=== PATIENT | female | born 1955 | race Caucasian/White ===

== ENCOUNTER 2016-11-16 14:02 | Emergency (ER) | payer BC ==
[~2016-11-16] VITALS: Ht 172.7 cm; Wt 115.7 kg
[~2016-11-16 14:02] MED LIST: ATENOLOL100 M1 PO; CIPRO PO; COUMADIN,JANTOVE6 MG; COUMADIN3 MG PO; COUMADIN4 MG PO; GLUCOPHAGE1000 MG; GLUCOPHAGE1000 MG PO; LEVOXYL; LISINOPRIL; NORVASC10 MG PO; SERTRALINE HCL100 MG; SIMVASTATIN; SYNTHROID25 MCG PO; TRILEPTAL300 MG; TYLENOL EXTRA500 MG PO; VOLTAREN 1% GE100 GM TP; XARELTO20 MG PO; Zestril,Prinivil PO; Zocor PO
[2016-11-16 15:52] LABS: HEMATOCRIT 44.5 % (36.0-46.0); MCH 30.7 PG (29.0-34.0); MCHC 32.6 G/DL (30.0-36.0); MCV 94.3 FL (83-99); MEAN PLAT.VOLUME 9.9 uM^3 (9.5-12.4); PLATELET COUNT 146 K/uL (156-360); RBC DIS.WIDTH-CV 11.9 % (11.8-14.6); RBC DIS.WIDTH-SD 41.4 % (39-53); RED BLOOD COUNT 4.72 M/uL (3.80-5.20); WHITE BLOOD COUNT 8.7 K/uL (4.1-10.2)
[2016-11-16 16:05] LABS: INTER. NORMALIZED RATIO 1.1; PROTHROMBIN TIME 10.7 (9.2-11.2); PTT 30.3 (25-32)
[2016-11-16 16:06] LABS: CHLORIDE 106 mEq/L (99-109); POTASSIUM 4.4 mEq/L (3.7-5.4); SODIUM 142 mEq/L (136-147)
[2016-11-16 16:08] LABS: GLUCOSE 116 mg/dL (70-99)
[2016-11-16 16:09] LABS: ANION GAP 8 MEQ/L (2-14)
[2016-11-16 16:11] LABS: GFR ESTIMATE (CALCULATED) > 59 mL/min/
[2016-11-16 16:12] LABS: UREA NITROGEN (BUN) 11 mg/dL (9-23)
[2016-11-16] MEDS ORDERED: ULTRAM50 MG PO (17:25)
[2016-11-16] MEDS ORDERED: LEVAQUIN500 MG PO (17:25)
[2016-11-16 17:50] VITALS: BP 171/82
== END 2016-11-16 17:58 | disposition home or self-care (01) ==
LOC: EME 14:02
DX: M79.605 Pain in left leg (principal); J18.9 Pneumonia, unspecified organism; Z86.718 Personal history of other venous thrombosis and embolism; Z86.711 Personal history of pulmonary embolism; D69.6 Thrombocytopenia, unspecified; R60.0 Localized edema; I10 Essential (primary) hypertension; E11.9 Type 2 diabetes mellitus without complications; Z79.01 Long term (current) use of anticoagulants
CPT/HCPCS: 71020; 80048; 85027; 85610; 85730; 93005; 93971; 99281; 99284

== ENCOUNTER 2017-02-03 05:28 | Day surgery (SDC) | payer BC ==
[~2017-02-03] VITALS: Ht 172.7 cm; Wt 117.9 kg
[~2017-02-03 05:28] MED LIST changes: +AMARYL4 MG PO; +CENTRUM SILVER1 EAC3 PO; +LEVAQUIN500 MG PO; +LEVO-T150 MCG PO; +LOVENOX60 MG/0.6 SC; +NEURONTIN300 MG PO; +ULTRAM50 MG PO; +ZOCOR20 MG PO; +ZOLOFT100 MG PO; +ZYRTEC10 M3 PO
[2017-02-03 06:14] VITALS: BP 117/65
[2017-02-03 06:18] LABS: POINT-OF-CARE METER ID UU13113694
[2017-02-03 06:35] LABS: PROTHROMBIN TIME 10.1 (9.2-11.2); PTT 26.6 (25-32)
[2017-02-03 09:03] LABS: POINT-OF-CARE METER ID UU13113675
[2017-02-03 10:07] VITALS: BP 108/63
[2017-02-03 11:20] VITALS: BP 113/61
== END 2017-02-03 11:33 | disposition home or self-care (01) ==
LOC: SDC 05:28
PROVIDERS: Surgery
PROC: 0DP64CZ Removal of Extraluminal Device from Stomach, Percutaneous Endoscopic Approach (ICD-10-PCS; principal; 2017-02-03)
DX: K95.09 Other complications of gastric band procedure (principal); I10 Essential (primary) hypertension; E78.5 Hyperlipidemia, unspecified; E11.9 Type 2 diabetes mellitus without complications; R01.1 Cardiac murmur, unspecified; G47.33 Obstructive sleep apnea (adult) (pediatric); E66.01 Morbid (severe) obesity due to excess calories; Z68.39 Body mass index [BMI] 39.0-39.9, adult; E03.9 Hypothyroidism, unspecified; F41.8 Other specified anxiety disorders; Z86.73 Personal history of transient ischemic attack (TIA), and cerebral infarction without residual deficits; Z79.84 Long term (current) use of oral hypoglycemic drugs; Z79.01 Long term (current) use of anticoagulants; Z87.891 Personal history of nicotine dependence
CPT/HCPCS: 82948; 85610; 85730; J0131; J1100; J1170; J1580; J1644; J2250; J2405; J2710; J2765; J3010; J7050; S0020